=== PATIENT | male | born 1995 | race African-American/Black ===

== ENCOUNTER 2022-01-13 19:02 | Emergency (ER) | payer MEDICAID ==
[~2022-01-13 19:02] MED LIST: BENZ1LOZ15 PO; NAPR500T6 PO
== END 2022-01-13 19:51 | disposition left against medical advice (07) ==
LOC: ER 19:06
DX: R03.0 Elevated blood-pressure reading, without diagnosis of hypertension (principal); Z53.21 Procedure and treatment not carried out due to patient leaving prior to being seen by health care provider

== ENCOUNTER 2022-11-25 11:35 | Emergency (ER) | payer MEDICAID ==
[~2022-11-25] VITALS: Ht 177.8 cm; Wt 127.3 kg
[2022-11-25 12:10] VITALS: BP 157/93
== END 2022-11-25 13:10 | disposition home or self-care (01) ==
LOC: ER 11:35
DX: F11.10 Opioid abuse, uncomplicated (principal); Z79.899 Other long term (current) drug therapy
CPT/HCPCS: 99281